=== PATIENT | male | born 1935 | race Caucasian/White ===

== ENCOUNTER 2017-02-01 19:20 | Emergency (ER) | payer MEDICARE, OTHER ==
[~2017-02-01 19:20] MED LIST: ADULT LOW DOSE81 MG; ADVIL200 M1 PO; ADVIL200 MG; ALEVE PM CAPLE1 EACH PO; AMOXICILLIN875 M1 PO; ASPIR 8181 M1 PO; ATORVASTATIN CA10 MG PO; CENTRUM SILVER1 EAC3 PO; CENTRUM SILVER1 TA; CENTRUM SILVER1 TA PO; CHILDREN'S CHEW81 MG PO; CIPRO250 MG PO; CIPRO500 MG PO; COLACE100 MG PO; COREG3.125 M1 PO; COREG6.25 M1 PO; FEROSUL325 M1 PO; FLOMAX; FLOMAX0.4 MG PO; FUROSEMIDE40 M2 PO; HYDROCODON-ACE1 EA16 PO; ISOSORBIDE MONO10 M1 PO; ISOSORBIDE MONO30 M4; ISOSORBIDE MONO30 M4 PO; LASIX20 M1 PO; LASIX40 M1 PO; LEVAQUIN750 M1 PO; LIPITOR40 M1 PO; LISINOPRIL5 M1; LISINOPRIL5 M1 PO; METOPROLOL SUCC25 M1 PO; MILK OF MAGNESIA PO; NITROGLYCERIN0.4 M2 SL; PERCOCET 5/3251 TAB PO; PLAVIX75 M1 PO; TOPROL XL25 M1 PO; TOPROL XL50 MG; TUMS500 MG; TYLENOL EXTRA500 MG; VITAMIN B12; [UNRECOGNIZED DRUG - OTHER] PO
[2017-02-01 20:06] LABS: BASO % 0.3 % (0-2); EOSINOPHIL ABSOLUTE COUNT 0.3 tho/cmm (0.0-0.7); HCT-HEMATOCRIT 30.9 % (36.0-53.5); HGB-HEMOGLOBIN 9.9 gm/dl (13.5-17.0); IMMATURE GRANULOCYTES ABSOLUTE 0.02 tho/cmm (0-0.03); IMMATURE GRANULOCYTES PERCENT 0.3 % (0-0.3); LYMPH % 11.2 % (20-45); LYMPH ABSOLUTE COUNT 0.8 tho/cmm (0.8-4.5); MCH (MEAN CORPUSCULAR HGB) 29.3 pg (28.0-32.0); MCV (MEAN CELL VOLUME) 91.4 fl (82.0-96.0); MEAN PLATELET VOLUME 10.4 cmc (9.4-12.4); MONO % 11.7 % (0-12); MONOCYTE ABSOLUTE COUNT 0.9 tho/cmm (0.0-1.2); NEUTROPHIL ABSOLUTE COUNT 5.3 tho/cmm (1.6-8.0); NEUTROPHIL-AUTOMATED 5.3 tho/cmm (1.6-8.0); NEUTROPHILS % 72.5 % (40-80); PLATELET COUNT 172 tho/cmm (150-450); RED BLOOD COUNT 3.38 mil/cmm (4.40-5.70); RED CELL DISTRIBUTION WIDTH 13.8 % (12.4-16.4); WHITE BLOOD COUNT 7.2 tho/cmm (4.0-10.0)
[2017-02-01 20:20] LABS: ALB/GLOB RATIO 0.6 (0.8-2.0); ALBUMIN 2.9 g/dl (3.5-5.0); ALKALINE PHOSPHATASE 93 U/L (33-138); ALT/SGPT 10 U/L (12-78); ANION GAP 14 mmol/L (0-20); AST/SGOT 20 U/L (10-40); BILIRUBIN,TOTAL 0.6 mg/dl (0.0-1.5); BLOOD UREA NITROGEN 29 mg/dl (6-24); CALCIUM 8.6 mg/dl (8.5-10.5); CARBON DIOXIDE-VENOUS 25 mmol/L (22-32); CHLORIDE 105 mmol/l (96-110); CREATININE 1.73 mg/dl (0.60-1.30); GLUCOSE 132 mg/dL (70-110); POTASSIUM 3.7 mmol/L (3.7-5.1); SODIUM 140 mmol/L (135-145); eGFR VALUE FOR BLACK 42 mL/Min
[2017-02-01 21:07] LABS: URINE BILIRUBIN NEGATIVE (NEG); URINE BLOOD LARGE (NEG); URINE GLUCOSE (UA) NEGATIVE (NEG); URINE KETONE NEGATIVE (NEG); URINE LEUKOCYTE ESTERASE POSITIVE (NEG); URINE NITRITE POSITIVE (NEG); URINE PH 6.5 (5.0-8.0); URINE PROTEIN MODERATE (NEG)
[2017-02-01 21:08] LABS: URINE APPEARANCE CLOUDY; URINE COLOR PINK
[2017-02-01 21:13] LABS: URINE AMORPHOUS 1+; URINE BACTERIA 1+; URINE EPITHELIAL CELLS RARE /[HPF] (0-10); URINE OTHER VOLUME 2 ML; URINE RBC 80-100 /[HPF] (0-5); URINE WBC FULL FIELD /[HPF] (0-5)
[2017-02-01] MEDS ORDERED: ZITHROMAX250 M1 PO (22:04)
== END 2017-02-01 22:19 ==
LOC: EDMED 19:20
PROVIDERS: Emergency Medicine
DX: J40 Bronchitis, not specified as acute or chronic (principal); I50.9 Heart failure, unspecified; I48.91 Unspecified atrial fibrillation; E78.5 Hyperlipidemia, unspecified; G47.33 Obstructive sleep apnea (adult) (pediatric); Z85.3 Personal history of malignant neoplasm of breast; Z85.46 Personal history of malignant neoplasm of prostate; F17.200 Nicotine dependence, unspecified, uncomplicated; Z79.82 Long term (current) use of aspirin; Z79.899 Other long term (current) drug therapy

== ENCOUNTER 2017-06-16 00:59 | Emergency (ER) | payer MEDICARE, OTHER ==
[~2017-06-16] VITALS: Ht 182.9 cm; Wt 75.0 kg
[~2017-06-16 00:59] MED LIST changes: +ZITHROMAX250 M1 PO
[2017-06-16 02:35] LABS: URINE BILIRUBIN NEGATIVE (NEG); URINE BLOOD LARGE (NEG); URINE GLUCOSE (UA) NEGATIVE (NEG); URINE KETONE NEGATIVE (NEG); URINE LEUKOCYTE ESTERASE POSITIVE (NEG); URINE NITRITE NEGATIVE (NEG); URINE PROTEIN MODERATE (NEG)
[2017-06-16 02:36] LABS: URINE APPEARANCE HAZY; URINE COLOR YELLOW
[2017-06-16 02:39] LABS: URINE BACTERIA 1+; URINE EPITHELIAL CELLS 0 /[HPF] (0-10)
== END 2017-06-16 02:52 ==
LOC: EDMED 00:59
PROVIDERS: Emergency Medicine
DX: T83.84XA Pain due to genitourinary prosthetic devices, implants and grafts, initial encounter (principal); I48.91 Unspecified atrial fibrillation; I11.0 Hypertensive heart disease with heart failure; I50.9 Heart failure, unspecified; Z85.038 Personal history of other malignant neoplasm of large intestine; Z85.46 Personal history of malignant neoplasm of prostate; Z95.5 Presence of coronary angioplasty implant and graft; Z95.0 Presence of cardiac pacemaker; Z98.890 Other specified postprocedural states; Z79.899 Other long term (current) drug therapy